=== PATIENT | female | born 1975 | race Caucasian/White ===

== ENCOUNTER 2023-10-14 15:25 | Emergency (ER) | payer BC, SELFPAY ==
[2023-10-14 15:34] VITALS: BP 113/72
[2023-10-14] MEDS: BENADRYL 50 MG IV (18:34)
[2023-10-14] MEDS: TORADOL 30 MG IV (18:34)
[2023-10-14] MEDS: COMPAZINE 10 MG IV (18:34)
[2023-10-14] MEDS: NSS 1000 IV (18:35)
[2023-10-14 18:37] VITALS: BP 131/72
[2023-10-14 19:00] VITALS: BP 116/64
[2023-10-14 20:00] VITALS: BP 126/72
--- NOTE | 2023-10-14 20:12 | ED.GENMED ---
History of Present Illness
General
Chief Complaint: Headache
Source: patient
Exam Limitations: none
Time Seen by Provider: 10/14/23 18:23
Nursing documentation reviewed up to this point in time: agreed with
Travel History
Have you had any contact with someone who has COVID-19?: No
Do you have any symptoms of coronavirus? Fever > 100 degrees, chills, cough, shortness of breath, sore throat, loss of taste or smell, muscle aches, or headache?: No
History of Present Illness
History of Present Illness:
Patient to ED with complaint of severe headache. States she woke at 4AM with fever/chills, body aches, headache. She home tested pos for COVID. States headache continues to worsen. States she has hx of migraines and this headache is similar to
migraines but not responding to typical migraine med (excedrin). She also took tylenol and ibuprofen at home without relief. Brought to ED by spouse for eval.
Past History
Past History
ED Past Medical History: Psychiatric (anxiety) and Other (migraines)
ED Past Surgical History: None
Social History
Tobacco: Non-smoker
Alcohol: None
Drug: None
Living: with family
Family History
Family History: Hypertension
Review of Systems
Review of Systems
Allergies reviewed?: Yes
All Other Systems: ROS reviewed and negative except as documented in HPI and ROS
Constitutional: Reports fever
EENT: Reports no symptoms
Respiratory: Reports no symptoms
ABD/GI: Reports no symptoms
: Reports no symptoms
Musculoskeletal: Reports other (generalized body aches)
Skin: Reports no symptoms
Neurological: Reports headache
Psychiatric: Reports no symptoms
Phy Exam
General Physical Exam
General Presentation: well appearing and mild distress
General age: appears stated age
General Skin: warm and dry
General Habitus: normal
General Mental: alert
ENT Exam
ENT Exam: EOMI
Eye Exam
Eye Exam: PERRL, EOMI and conjunctiva normal
Neurological Exam
Neurological Exam: alert, oriented x3, no motor deficits, no sensory deficits and speech normal
Musculoskeletal Exam
Musculoskeletal Exam: full ROM and neuro vasc intact
Skin Exam
Skin Exam: normal color, warm/dry and no rash
Psychiatric Exam
Psychiatric Exam: normal mood/affect
Course
Orders/Labs/Results
Orders:
Orders
10/14/23 18:26
Diphenhydramine [Benadryl] 50 mg IV NOW STA
Ketorolac [Toradol] 30 mg IV NOW STA
Prochlorperazine [Compazine] 10 mg IV NOW STA
10/14/23 18:27
0.9% Sodium Chloride 1000 ml [Nss] 1,000 ml IV BOLUS
Vital Signs
Initial and Last Documented VS:
Initial Vital Signs
Temp Pulse Resp BP Pulse Ox
99.3 F 94 18 113/72 100
10/14/23 15:34 10/14/23 15:34 10/14/23 15:34 10/14/23 15:34 10/14/23 15:34
Last Documented Vital Signs
Temp Pulse Resp BP Pulse Ox
99.3 F 94 18 116/64 100
10/14/23 15:34 10/14/23 15:34 10/14/23 15:34 10/14/23 19:00 10/14/23 19:15
*Critical Care Note
Total Time (30-74mins, 75-104mins- exclusive of procedures): Not Applicable
Update Note
Update Note:
Improved with migraine cocktail Will discharge home, she will follow up with PCP this week. Given instructions on s/s to return to ED and she is agareeable to plan.
ED Attending Note
-
Portions of this chart may have been created with voice recognition software.� Occasional wrong word or��sound alike� substitutions may have occurred due to the inherent limitations of voice recognition software.
Discharge Plan
Departure
Patient Disposition: Home (Routine Discharge)
Date of Disposition: 10/14/23
Time of Disposition: 20:11
Patient with high blood pressure during this ER visit?: No
Condition: Good
Covid-19: Not Applicable
Discharge Problem:
Migraine
Instructions: Migraines (DC), COVID-19 (DC)
Prescriptions:
No Action
citalopram 20 MG tablet
20 mg PO DAILY
ondansetron 4 MG tablet,disintegrating
4 mg PO TIDPRN PRN (Reason: NAUSEA) Qty: 20 0RF
naproxen [Naprosyn] 500 MG tablet
500 mg PO BID Qty: 20 0RF
Referrals:
NONE,* [Family Provider] -
Activity Restrictions/Additional Instructions:
Follow up with your family doctor tomorrow.
Interventions
Interventions:
*ED COVID-19 Vaccine History Last Done: 10/14/23 15:34
ED- Neurological Assessment Last Done: 10/14/23 18:41
== END 2023-10-14 20:56 | disposition home or self-care (01) ==
LOC: EMR 15:25
PROVIDERS: EMERGENCY PHYSICIAN Emergency Medicine
DX: G43.909 Migraine, unspecified, not intractable, without status migrainosus (principal)
CPT/HCPCS: 99284; 96374; 96375 ×2; 96361

== ENCOUNTER 2023-10-17 06:28 | Emergency (ER) | payer BC, SELFPAY ==
[2023-10-17 06:30] VITALS: BP 106/62
--- NOTE | 2023-10-17 06:51 | ED.GENMED ---
History of Present Illness
General
Chief Complaint: Throat Problem
Source: patient
Exam Limitations: none
Time Seen by Provider: 10/17/23 06:38
Nursing documentation reviewed up to this point in time: agreed with
Travel History
Have you had any contact with someone who has COVID-19?: No
Do you have any symptoms of coronavirus? Fever > 100 degrees, chills, cough, shortness of breath, sore throat, loss of taste or smell, muscle aches, or headache?: No
History of Present Illness
History of Present Illness:
47-year-old female presents with foreign body sensation in her throat on the left side she has COVID she took three 200 mg tablets of ibuprofen about an hour or so ago believes one of them stuck in her throat no nausea no vomiting not spitting up
use some olive oil with no relief no similar episodes
Past History
Past History
ED Past Medical History: Psychiatric (anxiety) and Other (migraines)
ED Past Surgical History: None
Social History
Tobacco: Non-smoker
Alcohol: None
Drug: None
Living: with family
Family History
Family History: Hypertension
Review of Systems
Review of Systems
All Other Systems: Not applicable
Constitutional: Denies fever or fatigue
EENT: Reports sore throat
Respiratory: Reports no symptoms
Cardiac: Reports no symptoms
ABD/GI: Reports no symptoms
: Reports no symptoms
Phy Exam
Physical Exam
Physical Exam:
Physical Exam
General: no apparent distress, not acutely ill
Neck: No foreign body seen posterior pharynx with tongue depressor assistance
Heart: s1/s2 regular rate and rhythm, no murmur. equal radial pulses.
Lungs: no acute respiratory distress. clear bilaterally
Neuro: alert and oriented. no focal neurological deficits
Skin: no rash
Psychiatric: well kept. interactive and cooperative
Extremities: no edema.
Course
Orders/Labs/Results
Orders:
Orders
10/17/23 06:47
Soft Tissue, Neck [CR Soft Tissue Neck ] Urgent
Comment:
Reason For Exam: fb sensatoin
10/17/23 08:10
Mag Hydrox/Al Hydrox/Simeth [Maalox] 30 ml Phenobarb/Hyoscy/Atropine/Scop [] 10 ml Viscous Lidocaine [Xylocaine Viscous 2%] 10 ml PO NOW
10/17/23 08:18
Mag Hydrox/Al Hydrox/Simeth [Maalox] 30 ml .ROUTE .STK-MED ONE
10/17/23 08:19
Phenobarb/Hyoscy/Atropine/Scop [] 10 ml .ROUTE .STK-MED ONE
10/17/23 08:21
Viscous Lidocaine 2% [Xylocaine Viscous Cup] 15 ml .ROUTE .STK-MED ONE
Vital Signs
Initial and Last Documented VS:
Initial Vital Signs
Temp Pulse Resp BP Pulse Ox
98.1 F 74 24 106/62 100
10/17/23 06:30 10/17/23 06:30 10/17/23 06:30 10/17/23 06:30 10/17/23 06:30
Last Documented Vital Signs
Temp Pulse Resp BP Pulse Ox
98.1 F 77 16 106/62 100
10/17/23 06:30 10/17/23 08:57 10/17/23 08:57 10/17/23 06:30 10/17/23 08:57
MDM/Problems Addressed
Differential Diagnosis Includes:
Foreign body, foreign body sensation, no signs of tracheal or esophageal perforation
MDM/Problems Addressed:
Foreign body sensation
*Radiology
Radiology exam reviewed: preliminary read by ED provider
*Pulse Oximetry
Patient hypoxic: no
*Critical Care Note
Total Time (30-74mins, 75-104mins- exclusive of procedures): Not Applicable
Update Note
Update Note:
Update patient nontoxic, states she feels a pill in her left mid pharynx towards her larynx no drooling no respiratory distress will try cool ice evangelina kortney soft tissue lateral neck
8 AM x-ray noted patient appears improved
940 patient appears well suspect she has some degree of pill esophagitis or pharyngitis unable to visualize anything in her posterior pharynx tongue depressor
ED Attending Note
-
Portions of this chart may have been created with voice recognition software.� Occasional wrong word or��sound alike� substitutions may have occurred due to the inherent limitations of voice recognition software.
Discharge Plan
Departure
Patient Disposition: Home (Routine Discharge)
Date of Disposition: 10/17/23
Time of Disposition: 09:41
Patient with high blood pressure during this ER visit?: No
Condition: Good
Discharge Problem:
Foreign body
Instructions: Swallowed Objects, Adult (DC), Dysphagia (DC)
Prescriptions:
New
alum-mag hydroxide-simeth [Maalox Advanced] 200-200-20 mg/5 mL suspension
10 ml PO QID PRN (Reason: dyspepsia) Qty: 1000 0RF
No Action
citalopram 20 MG tablet
20 mg PO DAILY
ondansetron 4 MG tablet,disintegrating
4 mg PO TIDPRN PRN (Reason: NAUSEA) Qty: 20 0RF
naproxen [Naprosyn] 500 MG tablet
500 mg PO BID Qty: 20 0RF
ondansetron 4 mg tablet,disintegrating
4 mg PO Q4H PRN (Reason: nausea and vomiting) Qty: 4 0RF
Referrals:
Robbie Gustafson MD [Family Provider] - Next open appointment
Activity Restrictions/Additional Instructions:
Drink plenty of fluids soft diet for the next few days use liquid form of medications if possible
Interventions
Interventions:
*Risk Screen - Suicide Last Done: 10/17/23 06:30
*General Assessment Last Done: 10/17/23 07:16
*Neglect/Abuse Screening Last Done: 10/17/23 06:30
ED- Fall Risk Assessment Last Done: 10/17/23 07:16
*ED COVID-19 Vaccine History Last Done: 10/17/23 07:16
ED-EENT Assessment Last Done: 10/17/23 07:18
ED- Pulmonary Assessment Last Done: 10/17/23 07:16
[2023-10-17] MEDS: MAALOX 50 PO (08:38)
[2023-10-17 10:00] VITALS: BP 108/82
== END 2023-10-17 10:12 | disposition home or self-care (01) ==
LOC: EMR 06:28
PROVIDERS: EMERGENCY PHYSICIAN Emergency Medicine; FAMILY PHYSICIAN Family Medicine
DX: R09.A2 Foreign body sensation, throat (principal); U07.1 COVID-19
CPT/HCPCS: 99283; 70360

== ENCOUNTER 2023-10-17 20:17 | Emergency (ER) | payer BC, SELFPAY ==
[2023-10-17 20:26] VITALS: BP 130/80
--- NOTE | 2023-10-17 21:47 | ED.GENMED ---
History of Present Illness
General
Chief Complaint: Swallowing Problem
Source: patient
Exam Limitations: none
Time Seen by Provider: 10/17/23 21:05
Nursing documentation reviewed up to this point in time: agreed with
Travel History
Have you had any contact with someone who has COVID-19?: No
Do you have any symptoms of coronavirus? Fever > 100 degrees, chills, cough, shortness of breath, sore throat, loss of taste or smell, muscle aches, or headache?: No
History of Present Illness
History of Present Illness:
Patient is a 47-year-old female otherwise healthy presenting for evaluation of foreign body sensation in throat. This occurred this morning when she was taking ibuprofen tablets. She felt 1 get stuck at the back of her throat and has been present
since. She is handling her oral secretions and liquids without difficulty. She does have some intermittent coughing. No difficulty breathing or vomiting.
She was seen in our emergency department earlier this morning for similar complaint. She had a soft tissue x-ray of her neck without any findings. She was given GI cocktail in the emergency department and recommended a trial Maalox at home for
likely pill esophagitis versus pharyngitis. She noticed no improvement. She tried drinking water, hot tea, chocolate, and ate a bowl of soup without any improvement.
She is COVID-positive.
Past History
Past History
ED Past Medical History: Psychiatric (anxiety) and Other (migraines)
ED Past Surgical History: None
Social History
Tobacco: Non-smoker
Alcohol: None
Drug: None
Living: with family
Family History
Family History: Hypertension
Phy Exam
Physical Exam
Physical Exam:
General: Well appearing and non-toxic, vital signs reviewed�patient afebrile
HEENT: Atraumatic, normocephalic; posterior pharynx mildly erythematous without edema, no foreign body visualized, uvula midline protecting airway
Neck: appears supple, normal range of motion, no tenderness in neck, trachea midline
CV: No evidence of cyanosis
Resp: No evidence of respiratory stress, lungs clear, no accessory muscle use
Abd: Non-distended
Extremities: No deformities
Neuro: alert
Psych: Normal affect
Skin: Intact, no rashes
Course
Vital Signs
Initial and Last Documented VS:
Initial Vital Signs
Temp Pulse Resp BP Pulse Ox
98.4 F 82 18 130/80 100
10/17/23 20:26 10/17/23 20:26 10/17/23 20:26 10/17/23 20:26 10/17/23 20:26
Last Documented Vital Signs
Temp Pulse Resp BP Pulse Ox
98.4 F 82 16 138/79 96
10/17/23 20:26 10/18/23 00:00 10/18/23 00:00 10/18/23 00:00 10/18/23 00:00
MDM/Problems Addressed
Differential Diagnosis Includes:
Pill esophagitis, globus sensation, foreign body, pharyngitis
MDM/Problems Addressed:
Patient is a 47-year-old female presenting for evaluation of foreign body sensation after taking Advil earlier this morning. She is handling her oral secretions without difficulty. Drinking liquids and soup. No vomiting. Seen earlier this morning
in the emergency department where no foreign body was identified and discharged with likely pill esophagitis vs pharyngitis. Patient states sensation has persisted. She is well appearing on exam, handling her oral secretions well. Posterior pharynx
mildly erythematous without edema. No foreign body visualized. Lungs clear. vital signs are stable, patient afebrile.
Patient reports some improvement throughout her time in the emergency department. She is wondering if sensation is also possibly due to mucus production from COVID. Discussed use of PROMOTIONAL MARKETING ANALYST tube to eval vocal cords and see if we can identify foreign
body. Patient opted to leave prior to us obtaining equipment. She is stable for discharge with ENT follow-up in the morning. Return precautions discussed. She has Maalox at home that she can use as needed. Patient is comfortable with this plan
all questions answered.
Chronic conditions affecting care:
N/A
Acute Exacerbation and/or Progression of Chronic Illness:
Foreign body sensation, COVID
*Pulse Oximetry
Patient hypoxic: no
*Cobol Application Developer Interpretation
Rate: Cobol Application Developer- N/A
*Critical Care Note
Total Time (30-74mins, 75-104mins- exclusive of procedures): Not Applicable
ED Attending Note
-
Portions of this chart may have been created with voice recognition software.� Occasional wrong word or��sound alike� substitutions may have occurred due to the inherent limitations of voice recognition software.
Discharge Plan
Departure
Patient Disposition: Home (Routine Discharge)
Date of Disposition: 10/18/23
Time of Disposition: 00:02
Patient with high blood pressure during this ER visit?: Yes
Condition: Good
Covid-19: Confirmed COVID-19
Discharge Problem:
Foreign body sensation, throat
Instructions: Foreign Body, Swallowed, Adult, COVID-19 (DC), BLOOD PRESSURE
Prescriptions:
No Action
citalopram 20 MG tablet
20 mg PO DAILY
ondansetron 4 MG tablet,disintegrating
4 mg PO TIDPRN PRN (Reason: NAUSEA) Qty: 20 0RF
naproxen [Naprosyn] 500 MG tablet
500 mg PO BID Qty: 20 0RF
ondansetron 4 mg tablet,disintegrating
4 mg PO Q4H PRN (Reason: nausea and vomiting) Qty: 4 0RF
alum-mag hydroxide-simeth [Maalox Advanced] 200-200-20 mg/5 mL suspension
10 ml PO QID PRN (Reason: dyspepsia) Qty: 1000 0RF
Referrals:
Robbie Gustafson MD [Family Provider] -
Dimitri Medley MD [Active] - Next open appointment
Activity Restrictions/Additional Instructions:
-Return to the emergency department with any high fevers, chest pain, shortness of breath, intractable vomiting, inability to tolerate liquids by mouth, worsening in current symptoms, or any other concerns
-Follow-up with ENT for further evaluation / treatment
-Stay well hydrated
Interventions
Interventions:
*Risk Screen - Suicide Last Done: 10/17/23 20:26
*General Assessment Last Done: 10/17/23 20:26
*Neglect/Abuse Screening Last Done: 10/17/23 20:26
ED- Fall Risk Assessment Last Done: 10/17/23 21:04
*ED COVID-19 Vaccine History Last Done: 10/17/23 20:26
*Nursing Disposition Last Done: 10/18/23 00:00
ED-EENT Assessment Last Done: 10/17/23 21:04
GR-[id number] Assessment Last Done: 10/17/23 21:04
ED- Pulmonary Assessment Last Done: 10/17/23 21:04
ED- Neurological Assessment Last Done: 10/17/23 21:04
ED Swallowing Screen Last Done: 10/17/23 21:04
Discharge Date and Time
Discharge Date/Time: 10/18/23 00:00
[2023-10-18] VITALS: BP 138/79
== END 2023-10-18 | disposition home or self-care (01) ==
LOC: EMR 20:17
PROVIDERS: EMERGENCY PHYSICIAN Emergency Medicine; FAMILY PHYSICIAN Family Medicine
DX: R09.A2 Foreign body sensation, throat (principal); U07.1 COVID-19; R03.0 Elevated blood-pressure reading, without diagnosis of hypertension
CPT/HCPCS: 99281